=== PATIENT | male | born 1995 | race Caucasian/White ===

== ENCOUNTER 2017-11-11 02:52 | Emergency (ER) | payer SELFPAY ==
[2017-11-11 03:03] VITALS: O2SAT 96
--- NOTE | 2017-11-11 03:46 | C.PDOC ---
History Of Present Illness 22 year old male presents to the ED for evaluation of laceration over his right eyebrow. Patient reports that today he tripped and fell hitting his right side of the face against the pavement. Patient is accompanied by his girlfriend and reports he had a few alcoholic drinks today. Patient denies LOC, blurry vision, numbness, weakness, nausea, vomit, dizziness. Time Seen by Provider: 11/11/17 03:09 Chief Complaint (Nursing): Abnormal Skin Integrity History Per: Patient History/Exam Limitations: no limitations Onset/Duration Of Symptoms: Hrs Current Symptoms Are (Timing): Still Present Location Of Injury: Right: Face (eyebrow) Quality Of Symptoms: Painful Recent travel outside of the [place]: No Additional History Per: Patient Past Medical History Reviewed: Historical Data, Nursing Documentation, Vital Signs Vital Signs: Last Vital Signs Temp 98.7 F 11/11/17 03:00 Pulse 94 H 11/11/17 03:00 Resp 18 11/11/17 03:00 BP 121/81 11/11/17 03:00 Pulse Ox 96 11/11/17 03:53 - Medical History PMH: Asthma (NO MEDS PER PT), Seizures (NO MEDS PER PT) Denies: Chronic Kidney Disease Surgical History: No Surg Hx Family History: States: Unknown Family Hx - Social History Hx Alcohol Use: Yes Hx Substance Use: Yes (MARIJUANA) - Immunization History Hx Tetanus Toxoid Vaccination: No Hx Influenza Vaccination: No Hx Pneumococcal Vaccination: No Review Of Systems Constitutional: Negative for: Fever, Chills Eyes: Negative for: Vision Change Cardiovascular: Negative for: Chest Pain Respiratory: Negative for: Shortness of Breath Gastrointestinal: Negative for: Nausea, Vomiting Skin: Positive for: Other (laceration) Neurological: Positive for: Headache. Negative for: Weakness, Numbness, Dizziness Physical Exam - Physical Exam Appears: Non-toxic, No Acute Distress Skin: Normal Color, Warm, Dry Head: Atraumatic, Normacephalic, No Tenderness (facial bones), Laceration (1.5 cm perpendicular to distal right eyebrow, no FB seen ) Eye(s): bilateral: Normal Inspection, PERRL, EOMI Oral Mucosa: Moist Neck: Normal ROM, No Midline Cervical Tenderness, Supple Extremity: Normal ROM, No Tenderness, No Swelling Neurological/Psych: Oriented x3, Normal Speech, Normal Motor, Normal Sensation Gait: Steady ED Course And Treatment O2 Sat by Pulse Oximetry: 96 (ON RA) Pulse Ox Interpretation: Normal Progress Note: Plan: - Tylenol 975 mg PO Laceration - Laceration Repair right eyebrow Wound Length (In cm): 1.5 Description Of Wound: Linear Wound Cleansed With: Sterile Saline Wound Examination: Irrigated With Saline, No FB With Wound Exploration Wound Closure: Steri Strips (x3), Skin Glue Wound Complexity: Simple (pt tolerated procedure well.) Disposition Counseled Patient/Family Regarding: Diagnosis, Need For Followup, Rx Given - Disposition Referrals: [facility] [Outside] Disposition: HOME/ ROUTINE Disposition Time: 03:43 Condition: STABLE Additional Instructions: Please follow up with PMD in 2 days Keep wound dry x 2 days Observe for concussion precautions as directed Take medications as directed Return to ER if worse Instructions: Laceration Repair With Glue (DC), Head Injury (ED) Forms: [employer] (Amharic) - Clinical Impression Clinical Impression: Laceration of right eyebrow - PA / MANAGER ROOFING / Resident Statement MD/DO has reviewed & agrees with the documentation as recorded. - Scribe Statement The provider has reviewed the documentation as recorded by the Scribe Zane Quintero All medical record entries made by the Scribe were at my direction and personally dictated by me. I have reviewed the chart and agree that the record accurately reflects my personal performance of the history, physical exam, medical decision making, and the department course for this patient. I have also personally directed, reviewed, and agree with the discharge instructions and disposition.
[2017-11-11 04:08] VITALS: TEMP 98
[2017-11-11 04:11] VITALS: BP 120/80; PULSE 80; RESP 20
== END 2017-11-11 04:03 | disposition home or self-care (01) ==
LOC: C.ER 02:52
DX: S01.111A Laceration without foreign body of right eyelid and periocular area, initial encounter (principal); W01.0XXA Fall on same level from slipping, tripping and stumbling without subsequent striking against object, initial encounter; Y92.480 Sidewalk as the place of occurrence of the external cause

== ENCOUNTER 2018-05-07 19:10 | Emergency (ER) | payer SELFPAY ==
--- NOTE | 2018-05-07 19:22 | C.PDOC ---
History Of Present Illness 23 year old male presents to the ED BIBA and with police escort for public inebriation. As per EMS, patient had an altercation at home and police were called. Patient also had an altercation with [facility]. Denies any physical complaints. Time Seen by Provider: 05/07/18 19:22 Chief Complaint (Nursing): Substance Abuse History Per: EMS, Other (Police ) History/Exam Limitations: no limitations Onset/Duration Of Symptoms: Hrs Current Symptoms Are (Timing): Still Present Suicide/Self Injury Attempted (Context): None Modifying Factor(s): Alcohol Severity: None Associated Symptoms: denies: Suicidal Thoughts, Suicidal Plan Involuntary Hold By: Local Law Enforcement Recent travel outside of the [place]: No Additional History Per: Patient, EMS, Law Enforcement Past Medical History Reviewed: Historical Data, Nursing Documentation, Vital Signs - Medical History PMH: Asthma (NO MEDS PER PT), Seizures (NO MEDS PER PT) Denies: Chronic Kidney Disease Surgical History: No Surg Hx Family History: States: No Known Family Hx - Social History Hx Alcohol Use: Yes Hx Substance Use: Yes (MARIJUANA) - Immunization History Hx Tetanus Toxoid Vaccination: No Hx Influenza Vaccination: No Hx Pneumococcal Vaccination: No Review Of Systems Except As Marked, All Systems Reviewed And Found Negative. Constitutional: Negative for: Fever, Chills Respiratory: Negative for: Shortness of Breath Gastrointestinal: Negative for: Abdominal Pain Psych: Negative for: Depression Physical Exam - Physical Exam Appears: Non-toxic, Combative, Agitated, Other (agitative, belligerent, combative ) Skin: Warm, Dry, No Rash Head: Normacephalic Eye(s): bilateral: Normal Inspection Nose: Normal Oral Mucosa: Moist Neck: Supple Chest: Symmetrical Cardiovascular: Rhythm Regular Respiratory: Normal Breath Sounds, No Rales, No Rhonchi, No Wheezing Gastrointestinal/Abdominal: Soft, No Tenderness Male Genital: Normal Inspection Extremity: Bilateral: Atraumatic Neurological/Psych: Oriented x3 Gait: Unsteady ED Course And Treatment O2 Sat by Pulse Oximetry: 95 (RA) Pulse Ox Interpretation: Normal Disposition Counseled Patient/Family Regarding: Studies Performed, Diagnosis, Need For Followup - Disposition Referrals: [facility] at [facility] [Outside] Disposition: HOME/ ROUTINE Disposition Time: 19:22 Condition: FAIR Instructions: Alcohol Abuse and Alcoholism (DC) Forms: [employer] (Salvadorean) - Clinical Impression Clinical Impression: Alcohol intoxication - Scribe Statement The provider has reviewed the documentation as recorded by the Scribe Lynn Dominguez All medical record entries made by the Tristonibe were at my direction and personally dictated by me. I have reviewed the chart and agree that the record accurately reflects my personal performance of the history, physical exam, medical decision making, and the department course for this patient. I have also personally directed, reviewed, and agree with the discharge instructions and disposition.
[2018-05-07 20:25] VITALS: RESP 20
[2018-05-07 22:11] VITALS: BP 96/61; PULSE 82; TEMP 97.8
[2018-05-08 00:16] VITALS: O2SAT 95
== END 2018-05-07 22:18 | disposition home or self-care (01) ==
LOC: C.ER 19:10
DX: F10.129 Alcohol abuse with intoxication, unspecified (principal)

== ENCOUNTER 2018-08-24 19:44 | Emergency (ER) | payer SELFPAY ==
--- NOTE | 2018-08-24 22:02 | C.PDOC ---
History Of Present Illness 23-year-old male is brought into the emergency department by EMS and [place] [employer] for public intoxication. Patient known to be confrontational with law-enforcement and placed in handcuffs for his own safety. Patient admits to alcohol and marijuana usage prior to arrival. <Kai Jacobsen E - Last Filed: 08/24/18 23:47> History Per: Patient History/Exam Limitations: no limitations Onset/Duration Of Symptoms: Hrs Current Symptoms Are (Timing): Still Present Suicide/Self Injury Attempted (Context): None Modifying Factor(s): Alcohol, Marijuana Associated Symptoms: Anger. denies: Suicidal Thoughts, Suicidal Plan Involuntary Hold By: Local Law Enforcement <Kai Jacobsen - Last Filed: 08/24/18 23:47> <Ramiro Christine - Last Filed: 08/25/18 05:09> Chief Complaint (Nursing): Substance Abuse Past Medical History Reviewed: Historical Data, Nursing Documentation, Vital Signs - Medical History PMH: Asthma (NO MEDS PER PT), Seizures (NO MEDS PER PT) Denies: Chronic Kidney Disease Surgical History: No Surg Hx Family History: States: Unknown Family Hx - Social History Hx Alcohol Use: Yes Hx Substance Use: Yes (MARIJUANA) - Immunization History Hx Tetanus Toxoid Vaccination: No Hx Influenza Vaccination: No Hx Pneumococcal Vaccination: No <Kai Jacobsen - Last Filed: 08/24/18 23:47> Vital Signs: Last Vital Signs Temp Pulse 78 08/25/18 02:00 Resp 21 08/25/18 02:00 BP 98/50 L 08/25/18 02:00 Pulse Ox 96 08/25/18 02:00 <Ramiro Christine - Last Filed: 08/25/18 05:09> Review Of Systems Except As Marked, All Systems Reviewed And Found Negative. Constitutional: Negative for: Fever, Chills Cardiovascular: Negative for: Chest Pain Respiratory: Negative for: Cough, Shortness of Breath Gastrointestinal: Negative for: Nausea, Vomiting, Abdominal Pain, Diarrhea Neurological: Negative for: Weakness, Numbness <Kai Jacobsen - Last Filed: 08/24/18 23:47> Physical Exam - Physical Exam Appears: Combative, Agitated, Other (cannot be redirected, put in 4-point restraints for his safety. Multiple tattoos. No injuries.) Skin: Warm, Dry Head: Atraumatic, Normacephalic Eye(s): bilateral: Normal Inspection, PERRL, EOMI Nose: Normal Oral Mucosa: Moist, Other (alcohol on breath) Neck: Normal, Supple Chest: Symmetrical, No Tenderness Cardiovascular: Rhythm Regular, No Murmur Respiratory: Normal Breath Sounds, No Rales, No Rhonchi, No Wheezing Gastrointestinal/Abdominal: Soft, No Tenderness Extremity: Other (restrained) Neurological/Psych: Oriented x3, Normal Speech, Normal Cognition <Kai Jacobsen - Last Filed: 08/24/18 23:47> ED Course And Treatment Reevaluation Time: 00:00 Reassessment Condition: Improved (out of restraints sleeping comfortably on tele monitor) <Kai Jacobsen - Last Filed: 08/24/18 23:47> O2 Sat by Pulse Oximetry: 96 Pulse Ox Interpretation: Normal <Ramiro Chrisitne - Last Filed: 08/25/18 05:09> Medical Decision Making Medical Decision Making: Plan: Ativan 2mg IM Geodon Inj 20mg IM Patient has been in restraints for 2 hours, trashing around attempting to remove restraints. Patient has been verbally abusing ED staff with endless litany of profanity. Patient chemically sedated for his and others' safety. 0000: polysubstance abuse behavior requiring physical and chemical restraints signed over to overnight MD in improving and stable condition. dispo in AM when sober. <Kai Jacobsen - Last Filed: 08/24/18 23:47> Disposition - Disposition Disposition Time: 00:00 <Kai Jacobsen - Last Filed: 08/24/18 23:47> Counseled Patient/Family Regarding: Studies Performed, Diagnosis, Need For Followup <Ramiro Christine - Last Filed: 08/25/18 05:09> - Disposition Referrals: [facility] [Outside] Disposition: HOME/ ROUTINE Condition: FAIR Instructions: Polysubstance Abuse (DC), Alcohol Abuse and Alcoholism (DC) Forms: [employer] (Bulgarian) - Clinical Impression Clinical Impression: Alcohol intoxication, Substance abuse - Scribe Statement The provider has reviewed the documentation as recorded by the Scribe (Delfino Bello) Provider Attestation: All medical record entries made by the Scribe were at my direction and personally dictated by me. I have reviewed the chart and agree that the record accurately reflects my personal performance of the history, physical exam, medical decision making, and the department course for this patient. I have also personally directed, reviewed, and agree with the discharge instructions and disposition. <Kai Jacobsen E - Last Filed: 08/24/18 23:47> Physician Patient Turnover Patient Signed Over To: Ramiro Christine Handoff Comments: dispo in AM when sober <Kai Jacobsen E - Last Filed: 08/24/18 23:47>
[2018-08-25 02:01] VITALS: O2SAT 96
[2018-08-25 05:10] VITALS: BP 110/90; PULSE 86; RESP 18
== END 2018-08-25 05:43 | disposition home or self-care (01) ==
LOC: C.ER 19:44
DX: F10.129 Alcohol abuse with intoxication, unspecified (principal); F19.10 Other psychoactive substance abuse, uncomplicated
CPT/HCPCS: 96372; 99285; J2060; J3486